=== PATIENT | female | born 1955 | race Caucasian/White ===

== ENCOUNTER 2019-07-18 01:14 | Emergency (ER) | payer BC ==
[2019-07-18 01:25] VITALS: BP 149/84; PULSE 73; TEMP 98; BMI 25.2
[2019-07-18] MEDS ORDERED: KETOROLAC TROMETHAMINE 60 MG/2 ML VIAL IM ONE (01:28)
[2019-07-18] MEDS ORDERED: CYCLOBENZAPRINE HCL 10 MG TABLET (FP) ONE (01:28)
[2019-07-18] MEDS ORDERED: KETOROLAC TROMETHAMINE 60 MG/2 ML VIAL ONE (01:28)
[2019-07-18] MEDS ORDERED: CYCLOBENZAPRINE HCL 10 MG TABLET (FP) PO ONE (01:35)
--- NOTE | 2019-07-18 01:35 | PDOC ---
History of Present Illness - General Chief Complaint: Pain, Acute Stated Complaint: NECK PAIN Time Seen by Provider: 07/18/19 01:26 History Source: Patient Exam Limitations: No Limitations - History of Present Illness Initial Comments: 07/18/19 01:29 This is a 64-year-old female who comes in complaining of left-sided neck pain. Patient said she cannot move her neck because it hurts too much. Patient states she woke up with the pain take Tylenol but nothing else for it. Patient denies any trauma or injury to the area. Patient denies history of similar pain in the past. Allergies: as per nursing notes Past Medical History: none Social history: Lives with family. No smoking. No alcohol. No illicit drugs. Surgical history: None General: No fevers or chills, no weakness, no weight loss HEENT: No change in vision. No sore throat,. No ear pain, neck pain as per HPI CardioVascular: no chest discomfort. No shortness of breath Respiratory:No cough, or wheezing. Gastrointestinal: no nausea, vomiting, diarrhea or constipation, No rectal bleeding Genitourinary: No dysuria, hematuria, or frequency Musculoskeletal: No joint or muscle pain or swelling Neurologic: No headache, vertigo, dizziness or loss of consciousness Psychiatric: nor depression Skin: No rashes or easy bruising Endocrine: no increased thirst or abnormal weight change Allergic: no skin or latex allergy All other systems reviewed and normal GENERAL: The patient is awake, alert, and fully oriented, in no acute distress. HEAD: Normal with no signs of trauma. NECK: There is some left paraspinal neck spasm on palpation. There is no cervical spine tenderness on palpation. EYES: Pupils equal, round and reactive to light, extraocular movements intact, sclera anicteric, conjunctiva clear. EXTREMITIES:atraumatic, Normal range of motion, no edema. NEUROLOGICAL: Normal speech, normal gait. PSYCH: Normal mood, normal affect. SKIN: Warm, Dry, normal turgor, no rashes or lesions noted Assessment and plan: This is a 64-year-old female with left-sided neck spasm. Patient given an anti-inflammatory Toradol muscle relaxant Flexeril. Patient discharged home will follow-up with her primary care doctor. Past History - Past Medical History Allergies/Adverse Reactions: Allergies Allergy/AdvReac Type Severity Reaction Status Date / Time No Known Allergies Allergy Unverified 07/18/19 01:15 Home Medications: Ambulatory Orders Cyclobenzaprine HCl [Flexeril 10 mg] 10 mg PO HS PRN #10 tablet 07/18/19 Naproxen [Naprosyn] 500 mg PO BID #28 tablet 07/18/19 COPD: No - Psycho Social/Smoking Cessation Hx Smoking History: Current some day smoker Information on smoking cessation initiated: Yes *Physical Exam - Vital Signs Last Vital Signs Temp Pulse Resp BP Pulse Ox 98 F 73 16 149/84 98 07/18/19 01:18 07/18/19 01:18 07/18/19 01:18 07/18/19 01:18 07/18/19 01:18 Discharge - Discharge Information Problems reviewed: Yes Clinical Impression/Diagnosis: Neck pain Condition: Stable Disposition: HOME - Admission No - Follow up/Referral Referrals: Juve Yee MD [Primary Care Provider] - - Patient Discharge Instructions Additional Instructions: For the pain take naproxen 1 tablet twice a day with food do not take on an empty stomach In addition to the naproxen you can also take Flexeril 1 tablet as needed before bed it will make you drowsy. Return to the emergency department immediately with ANY new, persistent or worsening symptoms. Continue any medications as previously prescribed by your physician. You should follow up with your primary doctor as soon as possible regarding today's emergency department visit. . Please make sure your doctor reviews the results of your emergency evaluation. Thank you for coming to the Emergency Department today for your care. It was a pleasure to see you today. Please note that your evaluation is INCOMPLETE until you follow-up with your doctor. - Post Discharge Activity
== END 2019-07-18 01:42 | disposition home or self-care (01) ==
LOC: FER 01:14
PROC: 3E0233Z Introduction of Anti-inflammatory into Muscle, Percutaneous Approach (ICD-10-PCS; principal; 2019-07-18)
DX: M54.2 Cervicalgia (principal); F17.210 Nicotine dependence, cigarettes, uncomplicated
CPT/HCPCS: 99282-25

== ENCOUNTER 2021-05-29 11:55 | Emergency (ER) | payer BC ==
[2021-05-29] MEDS ORDERED: SODIUM CHLORIDE 0.9% 500 ML INFUS.BAG IV ONE (12:03)
[2021-05-29] MEDS ORDERED: ACETAMINOPHEN 1000 MG/100 ML VIAL (NON FORMULARY) IVPB ONE (12:03)
[2021-05-29] MEDS ORDERED: ACETAMINOPHEN INJECTION 100 ML IVPB ONE ×2 (12:13→12:16)
[2021-05-29 12:24] VITALS: BMI 25.0
[2021-05-29] MEDS ORDERED: CASIRIVIMAB/IMDEVIMAB 10 ML in SODIUM CHLORIDE 100 ML IVPB ONE (12:30)
[2021-05-29 12:33] LABS: MEAN PLT VOLUME 8.2 fl (7.5-11.1)
[2021-05-29 12:36] LABS: ANION GAP 13 MMOL/L (8-16); BASO % 1.8 % (0-2.0); CALCIUM 7.9 mg/dl (8.5-10); CHLORIDE 96 mmol/L (98-107); CO2 23 mmol/L (21-32); EOS % 0.1 % (0-4.5); GLUCOSE,RANDOM 108 mg/dl (74-106); LYMPH % 9.2 % (8-40); MCH 26.9 pg (25.7-33.7); MCHC 33.3 g/dl (32.0-36.0); MEAN CELL VOLUME 80.6 fl (80-96); NEUT % 82.9 % (42.8-82.8); PLATELET COUNT 169 10^3/uL (134-434); RBC 5.21 M/mm3 (3.60-5.2); RDW 12.8 % (11.6-15.6); SODIUM 132 mmol/L (136-145); WHITE BLOOD COUNT 3.6 K/mm3 (4.0-10.8)
[2021-05-29 12:39] LABS: ALBUMIN 3.2 g/dl (3.4-5.0); ALK PHOS 79 U/L (45-117); BILIRUBIN,TOTAL 0.8 mg/dl (0.2-1); CREATININE 0.8 mg/dl (0.55-1.3); SGOT/AST 37 U/L (15-37); SGPT/ALT 36 U/L (13-61); TOT PROT 6.2 g/dl (6.4-8.2)
[2021-05-29 16:43] VITALS: BP 112/79; PULSE 80; TEMP 98.7
== END 2021-05-29 16:58 | disposition left against medical advice (07) ==
LOC: FER 11:55
PROC: 3E0333Z Introduction of Anti-inflammatory into Peripheral Vein, Percutaneous Approach (ICD-10-PCS; principal; 2021-05-29)
PROC: 3E03329 Introduction of Other Anti-infective into Peripheral Vein, Percutaneous Approach (ICD-10-PCS; 2021-05-29)
DX: U07.1 COVID-19 (principal)
CPT/HCPCS: 36415; 71045-TC-FY; 80053; 84484; 85025; 99284-25; J0131; Q0240

== ENCOUNTER 2022-06-19 04:13 | Day surgery (SDC) | payer BC ==
[2022-06-16 09:58] VITALS: BMI 24.4
[2022-06-19] MEDS ORDERED: PROPOFOL 40 ML ONE (07:08)
[2022-06-19] MEDS ORDERED: MIDAZOLAM HCL 2 MG/2 ML SINGLE DOSE VIAL ONE (07:09)
[2022-06-19] MEDS ORDERED: KETAMINE HCL 200 MG/20 ML VIAL ONE (07:10)
[2022-06-19] MEDS ORDERED: ACETAMINOPHEN 1000 MG/100 ML BAG IVPB ONE (07:36)
[2022-06-19] MEDS ORDERED: ACETAMINOPHEN INJECTION 100 ML IVPB ONE (07:44)
[2022-06-19] MEDS ORDERED: DEXTROSE 5%-0.45% SALINE 1,000 ML IV SCH (07:45)
[2022-06-19] MEDS ORDERED: IBUPROFEN 800 MG/8 ML IJ IVPB SCH (07:45)
[2022-06-19] MEDS ORDERED: ceFAZolin SODIUM 1 GM VIAL IVPB ONE (07:56)
[2022-06-19] MEDS ORDERED: PROPOFOL 20 ML ONE (07:59)
[2022-06-19] MEDS ORDERED: ONDANSETRON 4 MG/2 ML VIAL IVPUSH PRN (08:26)
[2022-06-19] MEDS ORDERED: ROCURONIUM BROMIDE 50 MG/5 ML SYRINGE ONE (08:34)
[2022-06-19 09:43] VITALS: RESP 20
[2022-06-19 10:56] VITALS: BP 128/70; PULSE 60; TEMP 98
== END 2022-06-19 10:50 | disposition home or self-care (01) ==
LOC: JASU-SURG 04:13
PROVIDERS: ATTEND Urology
PROC: 0T5B8ZZ Destruction of Bladder, Via Natural or Artificial Opening Endoscopic (ICD-10-PCS; principal; 2022-06-19 07:57)
DX: C67.9 Malignant neoplasm of bladder, unspecified (principal)
CPT/HCPCS: 88307-TC; 94760

== ENCOUNTER 2023-02-18 18:39 | Emergency (ER) | payer BC ==
[2023-02-18 18:48] VITALS: BP 153/87; PULSE 82; RESP 16; TEMP 97.3; BMI 23.4
[2023-02-18] MEDS ORDERED: ACETAMINOPHEN 500 MG TABLET (FP) PO ONE (19:07)
[2023-02-18] MEDS ORDERED: ACETAMINOPHEN 500 MG TABLET (FP) ONE (19:38)
== END 2023-02-18 20:55 | disposition home or self-care (01) ==
LOC: FER 18:39
DX: S22.31XA Fracture of one rib, right side, initial encounter for closed fracture (principal); X58.XXXA Exposure to other specified factors, initial encounter; Y93.9 Activity, unspecified; Y92.9 Unspecified place or not applicable
CPT/HCPCS: 71101-TC-RT-FY; 99283-25

== ENCOUNTER 2023-05-19 12:00 | Emergency (ER) | payer BC ==
[2023-05-19 12:45] VITALS: BP 146/90; PULSE 60; RESP 18; TEMP 98.8; BMI 20.4
== END 2023-05-19 14:06 | disposition home or self-care (01) ==
LOC: FER 12:00
DX: R21 Rash and other nonspecific skin eruption (principal); L30.9 Dermatitis, unspecified
CPT/HCPCS: 99283-25